=== PATIENT | female | born 2000 | race Two or more races ===

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

== ENCOUNTER 2019-08-09 18:01 | Emergency (ER) | payer MEDICAID ==
[2019-08-09 18:06] VITALS: BP 125/74
[2019-08-09] MEDS ORDERED: CETIRIZINE 10 MG TABLET PO STA (18:18)
[2019-08-09] MEDS ORDERED: PSEUDOEPHEDRINE 30 MG TABLET PO STA (18:18)
[2019-08-09] MEDS ORDERED: IBUPROFEN 800 MG TABLET PO STA (18:20)
--- NOTE | 2019-08-09 18:21 | ED Physician Documentation ---
History of Present Illness - Stated complaint Stated Complaint: GIRON - Chief complaint Chief Complaint: Neuro - History obtained from History obtained from: Patient - History of Present Illness Timing: How many days ago (2) Pain level max: 7 Pain level now: 5 - Additonal information Additional information: 19-year-old female presents to the emergency department with a frontal headache for the past 2 days. This comes and goes. Worse with bending over, better with standing up. Has had nasal congestion as well. No cough. No fever. Denies any possibility of . Took Motrin this morning without relief. No abdominal pain. No nausea or vomiting. Review of Systems Constitutional: denies: Fever, Chills Throat: denies: Sore throat Respiratory: denies: Cough GI: denies: Vomiting : denies: Now EGA Skin: denies: Rash PD PAST MEDICAL HISTORY - Past Medical History Cardiovascular: None Respiratory: None Endocrine/Autoimmune: None GI: None : None HEENT: Chronic vision loss Psych: Anxiety, Panic attacks Musculoskeletal: None Derm: None - Past Surgical History Past Surgical History: No - Present Medications Home Medications: Ambulatory Orders Medication Instructions Recorded Confirmed Cholecalciferol (Vitamin D3) 2,000 unit PO DAILY 11/12/18 08/09/19 [Vitamin D] Ferrous Sulfate 324 mg PO DAILY 11/12/18 08/09/19 Ibuprofen 2 - 3 tab PO Q6HR PRN 11/12/18 08/09/19 Sertraline HCl 50 mg PO DAILY 11/12/18 08/09/19 Cetirizine HCl/Pseudoephedrine 1 each PO BID PRN #30 tab.er.12h 08/09/19 [Zyrtec-D Tablet] Ethynodiol D-Ethinyl Estradiol 1 tab DAILY 08/09/19 08/09/19 [Kelnor 1-50 Tablet] Fluticasone [Flonase] 1 sprays TOMY BID PRN #1 bottle 08/09/19 Ibuprofen [Motrin] 800 mg PO Q8H PRN #30 tablet 08/09/19 Metformin HCl [Glucophage Xr] 1 tab BID 08/09/19 08/09/19 - Allergies Allergies/Adverse Reactions: Allergies Allergy/AdvReac Type Severity Reaction Status Date / Time No Known Drug Allergies Allergy Verified 08/09/19 18:04 - Social History Does the pt smoke?: No Smoking Status: Never smoker Does the pt drink ETOH?: No Does the pt have substance abuse?: No - Immunizations Immunizations are current?: Yes - POLST Patient has POLST: No PD ED PE NORMAL - Vitals Vital signs reviewed: Yes - General General: Alert and oriented X 3, No acute distress, Well developed/nourished - HEENT HEENT: Atraumatic, PERRL (No papilledema), EOMI, Ears normal, Moist mucous membranes, Pharynx benign, Other (Tender to palpation over the frontal and maxillary sinuses.) - Neck Neck: Supple, no meningeal sign, No bony TTP - Cardiac Cardiac: RRR - Respiratory Respiratory: No respiratory distress, Clear bilaterally - Abdomen Abdomen: Soft, Non tender, Non distended - Back Back: No CVA TTP, No spinal TTP - Derm Derm: Warm and dry, No rash - Extremities Extremities: Normal ROM s pain - Neuro Neuro: Alert and oriented X 3, 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 Will hold antibiotics at this time. Will place her on intranasal steroids and decongestants. We will have her follow-up with her doctor for further care. No evidence of meningitis, no evidence of encephalitis. No evidence of tumor mass. Normal neurological exam. No fevers. She is very well-appearing, nontoxic. Patient counseled regarding signs and symptoms for which I believe and urgent re-evaluation would be necessary. Patient with good understanding of and agreement to plan and is comfortable going home at this time This document was made in part using voice recognition software. While efforts are made to proofread this document, sound alike and grammatical errors may occur. Departure - Departure Disposition: 01 Home, Self Care Clinical Impression: Sinusitis Qualifiers: Sinusitis location: unspecified location Chronicity: acute Recurrence: non- recurrent Qualified Code(s): J01.90 - Acute sinusitis, unspecified Condition: Good Instructions: ED Sinusitis No Abx Follow-Up: Soni Reynolds ARNP [Primary Care Provider] - Within 1 week (if not better) Prescriptions: Cetirizine HCl/Pseudoephedrine [Zyrtec-D Tablet] 1 each PO BID PRN #30 tab.er.1 2h PRN Reason: nasal congestion Fluticasone [Flonase] 1 sprays TOMY BID PRN #1 bottle PRN Reason: nasal congestion Ibuprofen [Motrin] 800 mg PO Q8H PRN #30 tablet PRN Reason: PAIN &/OR FEVER Comments: Use the medications as prescribed. This should improve over the next few days. Return if you worsen.
[2019-08-09] MEDS ORDERED: predniSONE 20 MG TABLET PO STA (18:22)
== END 2019-08-09 18:34 | disposition home or self-care (01) ==
LOC: ED 18:01
DX: J01.10 Acute frontal sinusitis, unspecified (principal); J01.00 Acute maxillary sinusitis, unspecified
CPT/HCPCS: 99283; 99284; A9270; J7512